=== PATIENT | female | born 1930 | race Caucasian/White ===

== ENCOUNTER → 2019-07-29 | Outpatient (CLI) | payer OTHER ==
[~2019-07-29] MED LIST: ASPIRIN81 M2 PO; BACTRIM DS TAB1 EACH PO; BENADRYL25 MG PO; CALCIUM 1,0001 EACH PO; FOSAMAX 70 MG T70 M1 PO; LEVOTHYROXIN0.112 M1 PO; LORAZEPAM 1 MG T1 M1 PO; MACROBID 100 M100 M1 PO; MULTI-VITAMIN1 EAC5 PO; OMEGA-31000 M1 PO; PROBIOTIC1 EACH PO; TRAMADOL 50 MG50 MG PO
== END ==
LOC: ULTRA 16:07
DX: N32.89 Other specified disorders of bladder (principal); R33.8 Other retention of urine